=== PATIENT | male | born 1970 | race Asian ===

== ENCOUNTER 2017-02-26 16:16 | Emergency (ER) | payer OTHER ==
[2017-02-26 16:27] VITALS: BP 122/71; PULSE 81; RESP 16; TEMP 98.2; O2SAT 98
--- NOTE | 2017-02-26 17:06 | EDPHY ---
H & P Time Seen by Provider: 02/26/17 16:59 HPI/ROS: CHIEF COMPLAINT: Medication refill HISTORY OF PRESENT ILLNESS: 47-year-old man [place] , arrived February 20. He was supposed to go home tomorrow but had to extend his visit for 2 weeks for a personal emergency. He only has 9 Crestor tablets left and 5 Coumadin tablets left as he had only brought enough medication to get him through his initial departure. Crestor is 20 mg and Coumadin is 5 mg and he is on them for a previous heart attack with diagnosis of previous left ventricular thrombus. REVIEW OF SYSTEMS: Currently feels well, no chest pain or shortness of breath, no muscle aches, no signs or symptoms of bleeding. PAST MEDICAL HISTORY: Cardiac as above, August 2013 Social history: from [facility] General Appearance: Alert and conversant, cooperative. Emergency Department course/MDM: Prescription written for Crestor 20 mg, 10. Prescription written for Coumadin 5 mg, 12. Smoking Status: Never smoked Constitutional: Initial Vital Signs Temperature (C) 36.8 C 02/26/17 16:24 Heart Rate 81 02/26/17 16:24 Respiratory Rate 16 02/26/17 16:24 Blood Pressure 122/71 H 02/26/17 16:24 O2 Sat (%) 98 02/26/17 16:24 O2 Delivery Mode Room Air Allergies/Adverse Reactions: No Known Allergies Allergy (Unverified 02/26/17 16:22) Home Medications: Medication Instructions Recorded Aspirin 02/26/17 Lovastatin 02/26/17 Rosuvastatin Calcium [Crestor 20mg 20 mg PO DAILY #10 tab 02/26/17 (*)] Warfarin Sodium 02/26/17 Warfarin Sodium 5 mg PO DAILY #12 tablet 02/26/17 MDM/Departure - Depart Disposition: Home, Routine, Self-Care Clinical Impression: Medication refill Condition: Good Instructions: Warfarin (By mouth), Rosuvastatin (By mouth) Prescriptions: Rosuvastatin Calcium [Crestor 20mg (*)] 20 mg PO DAILY #10 tab Warfarin Sodium 5 mg PO DAILY #12 tablet Referrals: Tanya Olea MD [place] [place] - As per Instructions ( Primary care if you need further medications while you are here)
== END 2017-02-26 17:12 | disposition home or self-care (01) ==
DX: Z76.0 Encounter for issue of repeat prescription (principal); Z79.01 Long term (current) use of anticoagulants; Z79.82 Long term (current) use of aspirin